=== PATIENT | male | born 1980 | race Caucasian/White ===

== ENCOUNTER 2024-04-17 22:26 | Inpatient (IN) ==
--- NOTE | 2024-04-17 22:38 | Emergency Department Note ---
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 He started having a seizure. This lasted for over 30 minutes. He was given a total of 9 of Versed per EMS who provided additional history. Seizure eventually broke. They placed him on nonrebreather. Patient is unable to provide any additional history as he is currently postictal and partially sedated. ADDITIONAL HISTORY OBTAINED: Per HPI Chronic Medical/Social Conditions Affecting Care: Per HPI PAST MEDICAL HISTORY:See Below PAST SURGICAL HISTORY:See Below FAMILY HISTORY:See Below SOCIAL HISTORY:See Below HOME MEDICATIONS:See Below ALLERGIES:See Below VITALS:See Below PHYSICAL EXAMINATION: GENERAL: Laying on [place], cervical collar in place, nonrebreather in place HEAD: NC/AT EYE EXAM: normal conjunctiva. PERRL and EOM's grossly intact. OROPHARYNX: no exudate, no erythema, lips, buccal mucosa, and tongue normal and mucous membranes are moist NECK: supple, no nuchal rigidity, no adenopathy, non-tender LUNGS: Clear to auscultation. Normal chest wall mechanics HEART: no murmurs, S1 normal and S2 normal ABDOMEN: abdomen soft, non-tender, normo-active bowel sounds, no masses, no rebound or guarding. BACK: Back is symmetrical on inspection and there is no deformity, no midline tenderness, no CVA tenderness. UPPER EXTREMITIES: upper extremities are grossly normal. LOWER EXTREMITIES: No pitting edema. NEURO EXAM: Awake but not following commands moaning moving all extremities MEDICAL DECISION MAKING: Patient is a 43-year-old male who presents ER for the above-stated complaint. IV was established and blood work was obtained. Labs show no significant leukocytosis. Mild anemia at 13.2. VBG with a pH of 7.3. BMP along with LFTs bilirubin was unremarkable. Troponin was negative. Lipase mildly elevated to 63. Patient was given 1.75 g of Keppra. His mentation gradually improved while in the ER. CT head and cervical spine was negative. Pacemaker was interrogated and showed 8 months left of battery and no arrhythmias in the past 3 days. With his 30 to 40-minute episode of seizure did discuss with the hospitalist for further observation overnight. Again on repeat exam he was awake alert oriented to person place or time and following commands. No focal deficit. Consults/Care Managements Discussions: Per MDM Triage Nursing notes reviewed. Limited review of prior medical records performed Vital Signs: reviewed and remarkable for no significant abnormalities Differential diagnosis: Differential diagnosis includes etiologies such as infection, hypoglycemia, electrolyte abnormalities, cardiac sources, intracerebral event, trauma, toxicologic, neurologic, as well as others were entertained. ER treatment provided: See below Diagnostics interpreted by me include EKG and cardiac monitoring as listed below: -Cardiac Monitoring: An order was placed for continuous cardiac monitoring. The monitor shows a rate of 70 with sinus rhythm. -ECG: Sinus rhythm rate 89 Normal axis No PVCs QTc 442 -Laboratory studies:Interpreted by me as stated above in MDM and shown below. Imaging studies: Xrays: As interpreted by me: Chest x-ray shows bilateral interstitial infiltrates CTs show: CT head and cervical spine was negative per radiology Procedures:none Critical Care: None Past Med/Surg History Problem List (Updated 04/18/24 @ 00:12 by Memo Bennett DO) Anemia (Acute) High serum chloride (Acute) Status epilepticus (Acute) S/P placement of cardiac pacemaker Seizure disorder Presence of cardiac pacemaker B12 deficiency Lyme disease, unspecified Vitamin D deficiency, unspecified Complex partial epilepsy Insomnia, unspecified Elevation of levels of liver transaminase levels Hand pain, right Verruca vulgaris Lipoma of back Lipoma of forearm Displaced fracture of cuboid bone of left foot Nondisplaced fracture of navicular [scaphoid] of left foot, initial encounter for closed fracture Surgical History (Updated 06/22/23 @ 10:22 by Leigha Cardoso) Lymphoma History of mandibular surgery Family History Other Cancer Crohn's disease Seizures Ulcerative colitis Social History Smoking Status: Unknown if ever smoked Hx Alcohol Use: No Hx Substance Use: No Feels Safe at Home: Yes Allergies Allergies Allergy/AdvReac Type Severity Reaction Status Date / Time No Known Allergies Allergy Verified 12/23/23 11:28 Home Meds Home Medications Medication Instructions Recorded Confirmed cholecalciferol (vitamin D3) 50 50 mcg PO DAILY 06/14/23 12/23/23 mcg (2,000 unit) capsule magnesium 250 mg tablet 250 mg PO DAILY 06/14/23 12/23/23 medical marijuana inhalation 06/14/23 12/23/23 multivitamin 1 tab PO DAILY 06/14/23 12/23/23 omega 3-ppb-gyr-fish oil 1,000 mg 1 cap PO DAILY 06/14/23 12/23/23 (120 mg-180 mg) capsule (Fish Oil) Previous Rx's Medication Instructions Recorded levetiracetam 1,000 mg tablet 1,000 mg PO BID 90 days #180 tabs 06/22/23 Results & Data (ED) Vital Signs Vital Signs - 24 hr 04/17/24 22:30 04/17/24 22:33 04/17/24 22:34 Temperature 37.1 C Temperature Source Oral Pulse Rate 76 Pulse Rate [Apical] Pulse Rate from SpO2 Sensor Pulse Rhythm Regular Pulse Rhythm [Apical] Pulse Strength Normal Pulse Strength [Apical] Respiratory Rate 18 Respiratory Effort / Characteristics Non-Labored Spontaneous Respiratory Depth Normal Respiratory Pattern Regular Blood Pressure 114/71 Blood Pressure [Right Arm] Blood Pressure Mean 85 Blood Pressure Mean [Right Arm] Blood Pressure Position Lying Pulse Oximetry 95 95 Oxygen Delivery Method Room Air Room Air Room Air Sepsis Recent Fever Within 48 Hours No Sepsis New/Unexplained Change in Mental Status No Sepsis Action Taken by Nursing No Action Required 04/17/24 22:35 04/17/24 22:50 04/17/24 22:55 Temperature Temperature Source Pulse Rate 76 87 72 Pulse Rate [Apical] Pulse Rate from SpO2 Sensor 88 Pulse Rhythm Pulse Rhythm [Apical] Pulse Strength Pulse Strength [Apical] Respiratory Rate 19 18 Respiratory Effort / Characteristics Respiratory Depth Respiratory Pattern Blood Pressure 130/74 115/61 Blood Pressure [Right Arm] Blood Pressure Mean 89 75 Blood Pressure Mean [Right Arm] Blood Pressure Position Pulse Oximetry 97 99 Oxygen Delivery Method Room Air Room Air Sepsis Recent Fever Within 48 Hours Sepsis New/Unexplained Change in Mental Status Sepsis Action Taken by Nursing 04/17/24 23:12 Temperature Temperature Source Pulse Rate Pulse Rate [Apical] 69 Pulse Rate from SpO2 Sensor Pulse Rhythm Pulse Rhythm [Apical] Regular Pulse Strength Pulse Strength [Apical] Normal Respiratory Rate 18 Respiratory Effort / Characteristics Non-Labored Spontaneous Respiratory Depth Normal Respiratory Pattern Regular Blood Pressure Blood Pressure [Right Arm] 114/67 Blood Pressure Mean Blood Pressure Mean [Right Arm] 82 Blood Pressure Position Pulse Oximetry 98 Oxygen Delivery Method Room Air Sepsis Recent Fever Within 48 Hours Sepsis New/Unexplained Change in Mental Status Sepsis Action Taken by Nursing Laboratory Data 04/17/24 22:35 04/17/24 22:35 Lab Results 04/17/24 04/17/24 04/17/24 Range/Units 22:35 22:40 23:00 WBC 6.69 (4.8-10.8) K/ul RBC 4.09 L (4.70-6.10) M/uL Hgb 13.2 L (14.0-18.0) g/dl POC Hgb 13.3 L (14.0-18.0) g/dl Hct 39.6 L (42.0-52.0) % POC Hct 39 L (42-52) % MCV 96.8 (80.0-100.0) fL MCH 32.3 (25.0-34.0) pg MCHC 33.3 (32.0-36.0) g/dL RDW Std Deviation 42.6 (36.4-46.3) fL RDW Coeff of Darya 11.9 (11.5-14.5) % Plt Count 266 (130-400) K/uL MPV 9.5 (9.4-12.4) fL Immature Gran % (Auto) 0.3 % Neut % (Auto) 66.2 % Lymph % (Auto) 24.4 % [place] % (Auto) 6.6 % Eos % (Auto) 1.8 % Baso % (Auto) 0.7 % Neut # (Auto) 4.43 (1.40-6.50) K/uL Lymph # (Auto) 1.63 (1.20-3.40) K/uL [place] # (Auto) 0.44 (0.11-0.59) K/uL Eos # (Auto) 0.12 (0.00-0.50) K/uL Baso # (Auto) 0.05 (0.00-0.20) K/uL Immature Gran # (Auto) 0.02 (0.01-0.20) K/uL VBG pH 7.33 L (7.36-7.41) VBG pCO2 52 H (38-50) mmHg VBG pO2 35 mmHg VBG HCO3 27 mmol/L VBG O2 Saturation < 60.0 % VBG Base Excess 0.6 mEq/L POC Sodium 144 (135-144) mmol/L Sodium 143 (136-145) mmol/L POC Potassium 4.0 (3.3-5.0) mmol/L Potassium 4.1 (3.5-5.1) mmol/L POC Chloride 107 (101-112) mmol/L Chloride 110 H (98-107) mmol/L Carbon Dioxide 26 (21-32) mmol/L POC Total CO2 22 L (24-31) mmol/L Anion Gap 7 (3-11) POC Anion Gap 21.0 (16-25) mmol/L POC BUN 10 (7-18) mg/dl BUN 12 (6-23) mg/dl Creatinine 1.07 (0.6-1.4) mg/dl POC Creatinine 1.1 (0.6-1.3) mg/dl Est Cr Clr Drug Dosing 91.1 ml/min eGFR 87.76 BUN/Creatinine Ratio 11.2 (10-20) Glucose 97 (70-99(Fasting)) mg/dl POC Glucose (other) 90 (70-99) mg/dl Calcium 9.2 (8.6-10.3) mg/dl POC Ioniz Calcium Rosaura 1.18 (1.12-1.32) mmol/l Total Bilirubin 0.3 (0.2-1.0) mg/dl AST 19 (13-39) U/L ALT 14 (7-52) U/L Alkaline Phosphatase 54 (34-104) U/L Troponin I High Sens 2.7 (0-20) pg/ml Total Protein 6.4 (6.0-8.3) gm/dl Albumin 4.2 (3.4-5.0) gm/dl Globulin 2.2 L (2.5-4.0) gm/dl Albumin/Globulin Ratio 1.9 (0.9-2) Lipase 263 H (11-82) U/L Administered Medications Discontinued Medications Levetiracetam (Levetiracetam 500 Mg/5 Ml Vial) 1,750 mg 20 mg/kg (1750 mg) IV NOW STA Stop: 04/17/24 23:18 Last Admin: 04/17/24 23:33 Dose: 1,750 mg Documented By: [facility] Imaging Data Radiologist's Impression: Cervical Spine CT 04/17/24 22:33 Exam(s): CT C SPINE EXAM: CT Cervical Spine Without Intravenous Contrast CLINICAL HISTORY: Reason for exam: fall head trauma. TECHNIQUE: Axial computed tomography images of the cervical spine without intravenous contrast. CTDI is 37.87 mGy and DLP is 1096.61 mGy-cm. Automated exposure control was utilized for the study. A dose lowering technique was utilized adhering to the principles of ALARA. COMPARISON: No relevant prior studies available. FINDINGS: Vertebrae: Unremarkable. No acute fracture. Discs/spinal canal/neural foramina: No acute findings. No spinal canal stenosis. Soft tissues: Unremarkable. IMPRESSION: Normal cervical spine CT. Electronically signed by: Memo De La Torre MD 04/17/24 23:[address] 04/17/24 22:33 Exam(s): CT HEAD Without Contrast EXAM: CT Head Without Intravenous Contrast CLINICAL HISTORY: Reason for exam: seizure. TECHNIQUE: Axial computed tomography images of the head/brain without intravenous contrast. CTDI is 37.87 mGy and DLP is 1096.91 mGy-cm. Automated exposure control was utilized for the study. A dose lowering technique was utilized adhering to the principles of ALARA. COMPARISON: No relevant prior studies available. FINDINGS: Brain: Unremarkable. No hemorrhage. No significant white matter disease. No edema. Ventricles: Unremarkable. No ventriculomegaly. Bones/joints: Unremarkable. No acute fracture. Soft tissues: Unremarkable. Sinuses: Unremarkable as visualized. No acute sinusitis. Mastoid air cells: Unremarkable as visualized. No mastoid effusion. IMPRESSION: Head CT negative for acute intracranial abnormality. Electronically signed by: Memo De La Torre MD 04/17/24 23:00 PM Chest X-Ray 04/17/24 22:34 Exam(s): XR CXR 1 VIEW EXAM: XR Chest, 1 View CLINICAL HISTORY: Reason for exam: Chest pain, nonspecific. TECHNIQUE: Frontal view of the chest. COMPARISON: No relevant prior studies available. FINDINGS: Lungs: Diffuse interstitial infiltrates likely infectious or inflammatory etiology. Pleural space: Unremarkable. No pneumothorax. Heart: Heart size within normal limits. Mediastinum: Unremarkable. Normal mediastinal contour. Bones/joints: Unremarkable. No acute fracture. No effusions. Tubes, lines and devices: Left chest wall intracardiac device. IMPRESSION: Diffuse interstitial infiltrates likely infectious or inflammatory etiology. Electronically signed by: Memo De La Torre MD 04/17/24 23:09 PM Discharge Plan Visit Data Chief Complaint: Seizure Stated Complaint: SEIZURE ED Provider: Memo Bennett Discharge Problem: Status epilepticus, High serum chloride, Anemia Forms Stand Alone Forms: My [facility] [employer] Prescriptions Prescriptions: No Action multivitamin Tablet 1 tab PO DAILY cholecalciferol (vitamin D3) 50 mcg (2,000 unit) capsule 50 mcg PO DAILY omega 9-vbi-otb-fish oil [Fish Oil] 1,000 mg (120 mg-180 mg) capsule 1 cap PO DAILY medical marijuana inhalation magnesium 250 mg tablet 250 mg PO DAILY levetiracetam 1,000 mg tablet 1,000 mg PO BID 90 Days Qty: 180 3RF Referrals Referrals: Sindy Del Cid CRNP [Outside Practitioners] -
[2024-04-17 22:51] LABS: Basophils # (auto) 0.05 K/uL (0.00-0.20); Basophils % (auto) 0.7 %; Eosinophils # (auto) 0.12 K/uL (0.00-0.50); Eosinophils % (auto) 1.8 %; Hematocrit (blood only) 39.6 % (42.0-52.0); Hemoglobin 13.2 g/dl (14.0-18.0); Immature Granulocytes # (auto) 0.02 K/uL (0.01-0.20); Immature Granulocytes % (auto) 0.3 %; Lymphocytes # (auto) 1.63 K/uL (1.20-3.40); Lymphocytes % (auto) 24.4 %; Mean Corpuscular Hemoglobin 32.3 pg (25.0-34.0); Mean Corpuscular Hgb Conc 33.3 g/dL (32.0-36.0); Mean Corpuscular Volume 96.8 fL (80.0-100.0); Mean Platelet Volume 9.5 fL (9.4-12.4); Monocytes # (auto) 0.44 K/uL (0.11-0.59); Monocytes % (auto) 6.6 %; Neutrophils # (auto) 4.43 K/uL (1.40-6.50); Neutrophils % (auto) 66.2 %; Platelet Count 266 K/uL (130-400); RDW Coefficient of Variation 11.9 % (11.5-14.5); RDW Standard Deviation 42.6 fL (36.4-46.3); Red Blood Count 4.09 M/uL (4.70-6.10); White Blood Count 6.69 K/ul (4.8-10.8)
[2024-04-17 22:52] LABS: iSTAT Creatinine 1.1 mg/dl (0.6-1.3); iSTAT Hemoglobin 13.3 g/dl (14.0-18.0); iSTAT Ionized Calcium 1.18 mmol/l (1.12-1.32)
--- NOTE | 2024-04-17 23:01 | CT Scan Report ---
Exam(s): CT HEAD Without Contrast EXAM: CT Head Without Intravenous Contrast CLINICAL HISTORY: Reason for exam: seizure. TECHNIQUE: Axial computed tomography images of the head/brain without intravenous contrast. CTDI is 37.87 mGy and DLP is 1096.91 mGy-cm. Automated exposure control was utilized for the study. A dose lowering technique was utilized adhering to the principles of ALARA. COMPARISON: No relevant prior studies available. FINDINGS: Brain: Unremarkable. No hemorrhage. No significant white matter disease. No edema. Ventricles: Unremarkable. No ventriculomegaly. Bones/joints: Unremarkable. No acute fracture. Soft tissues: Unremarkable. Sinuses: Unremarkable as visualized. No acute sinusitis. Mastoid air cells: Unremarkable as visualized. No mastoid effusion. IMPRESSION: Head CT negative for acute intracranial abnormality. Electronically signed by: Memo De La Torre MD 04/17/24 23:00 PM
--- NOTE | 2024-04-17 23:05 | CT Scan Report ---
Exam(s): CT C SPINE EXAM: CT Cervical Spine Without Intravenous Contrast CLINICAL HISTORY: Reason for exam: fall head trauma. TECHNIQUE: Axial computed tomography images of the cervical spine without intravenous contrast. CTDI is 37.87 mGy and DLP is 1096.61 mGy-cm. Automated exposure control was utilized for the study. A dose lowering technique was utilized adhering to the principles of ALARA. COMPARISON: No relevant prior studies available. FINDINGS: Vertebrae: Unremarkable. No acute fracture. Discs/spinal canal/neural foramina: No acute findings. No spinal canal stenosis. Soft tissues: Unremarkable. IMPRESSION: Normal cervical spine CT. Electronically signed by: Memo De La Torre MD 04/17/24 23:05 PM
[2024-04-17 23:06] LABS: Albumin Globulin Ratio 1.9 (0.9-2); Albumin Level 4.2 gm/dl (3.4-5.0); BUN Creatinine Ratio 11.2 (10-20); Bilirubin,Total 0.3 mg/dl (0.2-1.0); Calcium 9.2 mg/dl (8.6-10.3); Creatinine Clr Calc Pharmacy 91.1 ml/min; Globulin 2.2 gm/dl (2.5-4.0); Potassium 4.1 mmol/L (3.5-5.1); Total Protein 6.4 gm/dl (6.0-8.3)
[2024-04-17 23:07] LABS: Base Excess VBG 0.6 mEq/L; HCO3 VBG 27 mmol/L; Oxygen Saturation VBG < 60.0 %; PCO2 VBG 52 mmHg (38-50); PO2 VBG 35 mmHg; pH VBG 7.33 (7.36-7.41)
--- NOTE | 2024-04-17 23:10 | XRay Report ---
Exam(s): XR CXR 1 VIEW EXAM: XR Chest, 1 View CLINICAL HISTORY: Reason for exam: Chest pain, nonspecific. TECHNIQUE: Frontal view of the chest. COMPARISON: No relevant prior studies available. FINDINGS: Lungs: Diffuse interstitial infiltrates likely infectious or inflammatory etiology. Pleural space: Unremarkable. No pneumothorax. Heart: Heart size within normal limits. Mediastinum: Unremarkable. Normal mediastinal contour. Bones/joints: Unremarkable. No acute fracture. No effusions. Tubes, lines and devices: Left chest wall intracardiac device. IMPRESSION: Diffuse interstitial infiltrates likely infectious or inflammatory etiology. Electronically signed by: Memo De La Torre MD 04/17/24 23:09 PM
[2024-04-17 23:14] LABS: Troponin I High Sensitivity 2.7 pg/ml (0-20)
[2024-04-17] MEDS: levETIRAcetam 500 MG/5 ML VIAL IV STA (23:33)
--- NOTE | 2024-04-18 00:32 | History & Physical Report ---
Date of Service April 18, 2024 Assessment & Plan (1) Status epilepticus: (2) Seizure disorder: (3) Presence of cardiac pacemaker: (4) Lyme disease, unspecified: Plan Status epilepticus/seizure disorder- Seizure duration and feel was noted to be over 30 minutes Patient received total of 9 mg of Versed by EMS in the field to break the seizure Patient has not had any recent illnesses He reports has been taking his Keppra as directed He received Keppra 1750 mg IV from the ED Since patient is more alert this time, will place him on his usual dosing of Keppra 1000 mg p.o. twice daily Admit to monitored bed with seizure precautions Order an EEG Patient is unable to get MRIs due to presence of a pacer Consult neurology Presence of AV pacer- Patient had history of Lyme disease, Lyme carditis and cardiac arrest History of Present Illness Chief Complaint: The patient presents to the emergency department with complaint of a seizure that lasted over 30 minutes today. He was seen by EMS, who gave a total of 9 mg of Versed to help control his seizure. He was placed on nonrebreather, and brought to the emergency, where he was initially postictal and partially sedated. 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 He presented to the emergency department after episode of status epilepticus, where seizure lasted for over 30 minutes, and ultimately the seizure broke after receiving 9 mg total of Versed from past. Patient was postictal for a few hours after the seizure, however, at the time of my assessment the patient is now oriented and no longer postictal. He denies any recent illnesses, travels or sick exposures. Allergies Allergy/AdvReac Type Severity Reaction Status Date / Time No Known Allergies Allergy Verified 12/23/23 11:28 Home Medications Medication Instructions Recorded Confirmed Type cholecalciferol (vitamin D3) 50 50 mcg PO DAILY 06/14/23 12/23/23 History mcg (2,000 unit) capsule magnesium 250 mg tablet 250 mg PO DAILY 06/14/23 12/23/23 History medical marijuana inhalation 06/14/23 12/23/23 History multivitamin 1 tab PO DAILY 06/14/23 12/23/23 History omega 6-vqo-ohv-fish oil 1,000 mg 1 cap PO DAILY 06/14/23 12/23/23 History (120 mg-180 mg) capsule (Fish Oil) levetiracetam 1,000 mg tablet 1,000 mg PO BID 90 days #180 tabs 06/22/23 12/23/23 Rx Past Med/Surg History Problem List (Updated 04/18/24 @ 00:12 by Memo Bennett DO) Anemia (Acute) High serum chloride (Acute) Status epilepticus (Acute) S/P placement of cardiac pacemaker Seizure disorder Presence of cardiac pacemaker B12 deficiency Lyme disease, unspecified Vitamin D deficiency, unspecified Complex partial epilepsy Insomnia, unspecified Elevation of levels of liver transaminase levels Hand pain, right Verruca vulgaris Lipoma of back Lipoma of forearm Displaced fracture of cuboid bone of left foot Nondisplaced fracture of navicular [scaphoid] of left foot, initial encounter for closed fracture Surgical History (Updated 06/22/23 @ 10:22 by Leigha Cardoso) Lymphoma History of mandibular surgery Family History Other Cancer Crohn's disease Seizures Ulcerative colitis Social History Smoking Status: Former smoker Tobacco Type: Cigarettes Second Hand Exposure: No; Hx Alcohol Use: No Hx Substance Use: No Preferred Language: Guatemalan Communication Ability: Effective 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 Beliefs That Will Affect Care: None Current Living Situation: Alone Current Living Situation Comment: Lives with grandmother Feels Safe at Home: Yes Assistive Devices: None Review of Systems 2 Review of Systems: The patient denies chest pain, palpitations, shortness of breath, dyspnea on exertion, cough, lower extremity swelling, sore throat, fevers, chills, sweats, weight change, fatigue, nausea, vomiting, diarrhea , constipation, abdominal pain, pelvic pain, blood in urine or stool, dysuria, urinary frequency or urgency, rash, abnormal bruising or bleeding, imbalance, focal or generalized weakness, numbness or tingling in arms or legs, generalized arthralgias or myalgias, back or neck pain, or night sweats. The review of systems is otherwise negative other than for that already noted above, and at least 10 systems have been reviewed. Physical Exam Physical Exam: The patient is awake, alert and oriented 3, well developed and well nourished, normocephalic and atraumatic, lying in bed and in no acute distress. HEENT--PERRL, EOMI, mucous membranes and oropharynx dry. Neck--supple. No JVD. No bruits. Thyroid normal, trachea midline, no adenopathy. Heart--normal S1 and S2. No murmurs, rubs or gallops. Lungs--clear bilaterally, no respiratory distress, no accessory muscle use. Abdomen--normal bowel sounds and soft. Nontender. Nondistended, no hernias or masses, no organomegaly. Extremities--no cyanosis or clubbing. No edema. There are good distal pulses b/l. Dermatologic--normal skin turgor, normal color, no abnormal lymph nodes, no rash. Neurologic--cranial nerves II through XII grossly intact. Rheumatologic--normal range of motion. Psychiatric--normal affect. Results & Data Results & Data Vital Signs (Past 12 Hours) Vital Signs Temp Pulse Pulse Resp BP BP Pulse Ox 04/17/24 23:12 69 18 114/67 98 04/17/24 22:55 72 18 115/61 99 04/17/24 22:50 87 19 130/74 97 04/17/24 22:35 76 04/17/24 22:34 95 04/17/24 22:33 04/17/24 22:30 37.1 C 76 18 114/71 95 O2 Del Method 04/17/24 23:12 Room Air 04/17/24 22:55 Room Air 04/17/24 22:50 Room Air 04/17/24 22:35 04/17/24 22:34 Room Air 04/17/24 22:33 Room Air 04/17/24 22:30 Room Air Laboratory Results Laboratory Results WBC 6.69 K/ul (4.8-10.8) 04/17/24 22:35 RBC 4.09 M/uL (4.70-6.10) L 04/17/24 22:35 Hgb 13.2 g/dl (14.0-18.0) L 04/17/24 22:35 POC Hgb 13.3 g/dl (14.0-18.0) L 04/17/24 22:40 Hct 39.6 % (42.0-52.0) L 04/17/24 22:35 POC Hct 39 % (42-52) L 04/17/24 22:40 MCV 96.8 fL (80.0-100.0) 04/17/24 22:35 MCH 32.3 pg (25.0-34.0) 04/17/24 22: MCHC 33.3 g/dL (32.0-36.0) 04/17/24 22:35 RDW Std Deviation 42.6 fL (36.4-46.3) 04/17/24 22: RDW Coeff of Darya 11.9 % (11.5-14.5) 04/17/24: Plt Count 266 K/uL (130-400) 04/17/24 22:35 MPV 9.5 fL (9.4-12.4) 04/17/24 22:35 Immature Gran % (Auto) 0.3 % 04/17/24 22:35 Neut % (Auto) 66.2 % 04/17/24 22:35 Lymph % (Auto) 24.4 % 04/17/24 22:35 [place] % (Auto) 6.6 % 04/17/24 22:35 Eos % (Auto) 1.8 % 04/17/24 22:35 Baso % (Auto) 0.7 % 04/17/24 22:35 Neut # (Auto) 4.43 K/uL (1.40-6.50) 04/17/24 22:35 Lymph # (Auto) 1.63 K/uL (1.20-3.40) 04/17/24 22:35 [place] # (Auto) 0.44 K/uL (0.11-0.59) 04/17/24 22:35 Eos # (Auto) 0.12 K/uL (0.00-0.50) 04/17/24 22: Baso # (Auto) 0.05 K/uL (0.00-0.20) 04/17/24 22:35 Immature Gran # (Auto) 0.02 K/uL (0.01-0.20) 04/17/24 22:35 VBG pH 7.33 (7.36-7.41) L 04/17/24 23:00 VBG pCO2 52 mmHg (38-50) H 04/17/24 23:00 VBG pO2 35 mmHg 04/17/24 23:00 VBG HCO3 27 mmol/L 04/17/24 23:00 VBG O2 Saturation < 60.0 % 04/17/24 23:00 VBG Base Excess 0.6 mEq/L 04/17/24 23:00 POC Sodium 144 mmol/L (135-144) 04/17/24 22:40 Sodium 143 mmol/L (136-145) 04/17/24 22:35 POC Potassium 4.0 mmol/L (3.3-5.0) 04/17/24 22:40 Potassium 4.1 mmol/L (3.5-5.1) 04/17/24 22:35 POC Chloride 107 mmol/L (101-112) 04/17/24 22:40 Chloride 110 mmol/L (98-107) H 04/17/24 22:35 Carbon Dioxide 26 mmol/L (21-32) 04/17/24 22:35 POC Total CO2 22 mmol/L (24-31) L 04/17/24 22:40 Anion Gap 7 (3-11) 04/17/24 22:35 POC Anion Gap 21.0 mmol/L (16-25) 04/17/24 22:40 POC BUN 10 mg/dl (7-18) 04/17/24 22:40 BUN 12 mg/dl (6-23) 04/17/24 22:35 Creatinine 1.07 mg/dl (0.6-1.4) 04/17/24 22:35 POC Creatinine 1.1 mg/dl (0.6-1.3) 04/17/24 22:40 Est Cr Clr Drug Dosing 91.1 ml/min 04/17/24 22:35 eGFR 87.76 04/17/24 22:35 BUN/Creatinine Ratio 11.2 (10-20) 04/17/24 22:35 Glucose 97 mg/dl (70-99(Fasting)) 04/17/24 22:35 POC Glucose (other) 90 mg/dl (70-99) 04/17/24 22:40 Calcium 9.2 mg/dl (8.6-10.3) 04/17/24 22:35 POC Ioniz Calcium Rosaura 1.18 mmol/l (1.12-1.32) 04/17/24 22:40 Total Bilirubin 0.3 mg/dl (0.2-1.0) 04/17/24 22:35 AST 19 U/L (13-39) 04/17/24 22:35 ALT 14 U/L (7-52) 04/17/24 22:35 Alkaline Phosphatase 54 U/L (34-104) 04/17/24 22:35 Troponin I High Sens 2.7 pg/ml (0-20) 04/17/24 22:35 Total Protein 6.4 gm/dl (6.0-8.3) 04/17/24 22:35 Albumin 4.2 gm/dl (3.4-5.0) 04/17/24 22:35 Globulin 2.2 gm/dl (2.5-4.0) L 04/17/24 22:35 Albumin/Globulin Ratio 1.9 (0.9-2) 04/17/24 22:35 Lipase 263 U/L (11-82) H 04/17/24 22:[address] 04/17/24 22:33 Exam(s): CT C SPINE EXAM: CT Cervical Spine Without Intravenous Contrast CLINICAL HISTORY: Reason for exam: fall head trauma. TECHNIQUE: Axial computed tomography images of the cervical spine without intravenous contrast. CTDI is 37.87 mGy and DLP is 1096.61 mGy-cm. Automated exposure control was utilized for the study. A dose lowering technique was utilized adhering to the principles of ALARA. COMPARISON: No relevant prior studies available. FINDINGS: Vertebrae: Unremarkable. No acute fracture. Discs/spinal canal/neural foramina: No acute findings. No spinal canal stenosis. Soft tissues: Unremarkable. IMPRESSION: Normal cervical spine CT. Electronically signed by: Memo De La Torre MD 04/17/24 23:[address] 04/17/24 22:33 Exam(s): CT HEAD Without Contrast EXAM: CT Head Without Intravenous Contrast CLINICAL HISTORY: Reason for exam: seizure. TECHNIQUE: Axial computed tomography images of the head/brain without intravenous contrast. CTDI is 37.87 mGy and DLP is 1096.91 mGy-cm. Automated exposure control was utilized for the study. A dose lowering technique was utilized adhering to the principles of ALARA. COMPARISON: No relevant prior studies available. FINDINGS: Brain: Unremarkable. No hemorrhage. No significant white matter disease. No edema. Ventricles: Unremarkable. No ventriculomegaly. Bones/joints: Unremarkable. No acute fracture. Soft tissues: Unremarkable. Sinuses: Unremarkable as visualized. No acute sinusitis. Mastoid air cells: Unremarkable as visualized. No mastoid effusion. IMPRESSION: Head CT negative for acute intracranial abnormality. Electronically signed by: Memo De La Torre MD 04/17/24 23:00 PM Chest X-Ray 04/17/24 22:34 Exam(s): XR CXR 1 VIEW EXAM: XR Chest, 1 View CLINICAL HISTORY: Reason for exam: Chest pain, nonspecific. TECHNIQUE: Frontal view of the chest. COMPARISON: No relevant prior studies available. FINDINGS: Lungs: Diffuse interstitial infiltrates likely infectious or inflammatory etiology. Pleural space: Unremarkable. No pneumothorax. Heart: Heart size within normal limits. Mediastinum: Unremarkable. Normal mediastinal contour. Bones/joints: Unremarkable. No acute fracture. No effusions. Tubes, lines and devices: Left chest wall intracardiac device. IMPRESSION: Diffuse interstitial infiltrates likely infectious or inflammatory etiology. Electronically signed by: Memo De La Torre MD 04/17/24 23:09 PM Code Status & VTE Plan Code Status Full code VTE Prophylaxis Plan VTE Prophylaxis will be ordered: Yes PG Care Time/CCT Total # of Minutes Spent Total Time Spent with Patient: Total time spent is greater than 50% in coordination of care (as documented) at patient's floor/unit and/or counseling patient: Coding Level of Care Code 54811 INT INP/OBS CARE 2/55MIN Diagnoses Status epilepticus G40.901 Seizure disorder G40.909 Presence of cardiac pacemaker Z95.0 Lyme disease, unspecified A69.20
[2024-04-18 06:40] LABS: Basophils # (auto) 0.05 K/uL (0.00-0.20); Basophils % (auto) 0.4 %; Eosinophils # (auto) 0.04 K/uL (0.00-0.50); Eosinophils % (auto) 0.3 %; Hematocrit (blood only) 38.3 % (42.0-52.0); Hemoglobin 13.1 g/dl (14.0-18.0); Immature Granulocytes # (auto) 0.05 K/uL (0.01-0.20); Immature Granulocytes % (auto) 0.4 %; Lymphocytes # (auto) 2.04 K/uL (1.20-3.40); Lymphocytes % (auto) 16.6 %; Mean Corpuscular Hemoglobin 32.8 pg (25.0-34.0); Mean Corpuscular Hgb Conc 34.2 g/dL (32.0-36.0); Mean Platelet Volume 9.5 fL (9.4-12.4); Monocytes # (auto) 0.91 K/uL (0.11-0.59); Monocytes % (auto) 7.4 %; Neutrophils # (auto) 9.22 K/uL (1.40-6.50); Neutrophils % (auto) 74.9 %; Platelet Count 259 K/uL (130-400); RDW Coefficient of Variation 11.9 % (11.5-14.5); RDW Standard Deviation 41.8 fL (36.4-46.3); Red Blood Count 3.99 M/uL (4.70-6.10); White Blood Count 12.31 K/ul (4.8-10.8)
[2024-04-18 06:58] LABS: Albumin Globulin Ratio 1.6 (0.9-2); Albumin Level 3.9 gm/dl (3.4-5.0); BUN Creatinine Ratio 12.8 (10-20); Bilirubin,Total 0.6 mg/dl (0.2-1.0); Calcium 9.1 mg/dl (8.6-10.3); Creatinine Clr Calc Pharmacy 100.3 ml/min; Globulin 2.5 gm/dl (2.5-4.0); Potassium 4.3 mmol/L (3.5-5.1); Total Protein 6.4 gm/dl (6.0-8.3)
[2024-04-18 07:15] VITALS: TEMP 98.6
[2024-04-18] MEDS: OMEGA-3 (PURIFIED FISH OIL) 1 GM CAP PO SCH (09:02)
[2024-04-18] MEDS: levETIRAcetam 500 MG TAB PO SCH (09:02)
[2024-04-18] MEDS: MAGNESIUM OXIDE 400 MG TAB PO SCH (09:02)
[2024-04-18] MEDS: CHOLECALCIFEROL 25 MCG (1000 UNITS) TAB PO SCH (09:03)
[2024-04-18] MEDS: MULTIVITAMIN TAB PO SCH (09:03)
[2024-04-18] MEDS: ACETAMINOPHEN 325 MG TAB PO PRN (09:04)
--- NOTE | 2024-04-18 09:13 | Neurology Consultation ---
Date of Consultation April 18, 2024 Assessment & Plan (1) Seizure: (2) Seizure disorder: Plan 43-year-old male with a history of seizure disorder beginning in 2007. He has been seizure-free since October 2022. He has been compliant with Keppra 1000 mg twice daily. Last night's breakthrough seizure seems to have been unprovoked. At this point, I would recommend adding divalproex DR 500 mg twice daily as an adjunctive antiseizure medication. He should continue with Keppra 1000 mg twice daily. Going forward, I will consider transitioning from levetiracetam to divalproex monotherapy. An inpatient EEG is not necessary at this time. However, I will arrange for an outpatient ambulatory EEG. Patient may follow-up with me in clinic 2 to 3 weeks after discharge. History of Present Illness Reason for Consultation: Seizure Requesting Physician: Yaw Attending Physician: Mulugeta Aviles, DO History of Present Illness The patient is a 43-year-old male who is known to me. I initially evaluated him in neurology clinic in May 2023 for ongoing management of seizure disorder. He began experiencing seizures in 2007, episodes characterized by feeling of fatigue, strange feeling in the head, followed by collapse, loss of consciousn ess, generalized shaking of the limbs. At that point in time, his last seizure had occurred in October 2022. His dosage of Keppra had been increased at that time and he had been compliant with his medication. He has had several normal EEGs previously. History notable for Lyme disease complicated by carditis, cardiac arrest, post pacemaker implantation. His pacer is not MRI compatible. I saw him for a follow-up visit December 23, 2023, he had been doing well with Keppra, no changes were made in his treatment regimen at that time. A Keppra level was drawn on December 25, 2023, level 20.2. He presented to the [facility] emergency department last night after a seizure episode that occurred at work. He works at a [employer] plant, second shift, had been feeling well throughout the day, at around 9 PM he recalls feeling a little dizzy, strange feeling. He apparently collapsed and had a generalized tonic-clonic seizure lasting over 30 minutes. Resolved with Versed per EMS. He bit the tip of his tongue, no other injuries. Currently complains of a low-grade headache and is otherwise amnestic for the event. A CT of the head and cervical spine are negative for acute process. I did independently review these images. There is no hydrocephalus, no hemorrhage, no mass effect. There is a mild leukocytosis this morning, sodium, potassium, BUN and creatinine normal. Calcium and magnesium normal, normal transaminases. His electrocardiogram reveals a normal sinus rhythm with sinus arrhythmia. He has been afebrile and normotensive. Allergies Allergy/AdvReac Type Severity Reaction Status Date / Time No Known Allergies Allergy Verified 12/23/23 11:28 Home Medications Medication Instructions Recorded Confirmed Type cholecalciferol (vitamin D3) 50 50 mcg PO DAILY 06/14/23 12/23/23 History mcg (2,000 unit) capsule magnesium 250 mg tablet 250 mg PO DAILY 06/14/23 12/23/23 History medical marijuana inhalation 06/14/23 12/23/23 History multivitamin 1 tab PO DAILY 06/14/23 12/23/23 History omega 3-vdg-zdj-fish oil 1,000 mg 1 cap PO DAILY 06/14/23 12/23/23 History (120 mg-180 mg) capsule (Fish Oil) levetiracetam 1,000 mg tablet 1,000 mg PO BID 90 days #180 tabs 06/22/23 12/23/23 Rx Patient History Surgical History (Updated 06/22/23 @ 10:22 by Leigha Cardoso) Lymphoma History of mandibular surgery Family History Other Cancer Crohn's disease Seizures Ulcerative colitis Social History Smoking Status: Former smoker Tobacco Type: Cigarettes Smoking End Date: quit 5 years ago; Second Hand Exposure: No; Tobacco Cessation Education Requested by Patient: No Hx Alcohol Use: No Hx Substance Use: No Preferred Language: [place] Verdean Communication Ability: Effective Toeing Stockings Required: No Beliefs That Will Affect Care: None Current Living Situation: Alone Current Living Situation Comment: Lives with grandmother Other Information That Helps Us Care for You: No Feels Safe at Home: Yes Safety Concerns: Feels Safe At This Time Assistive Devices: None Review of Systems Constitutional: no fever and no chills Eyes: no blind spots and no diplopia Ear, Nose, Mouth, Throat: no hearing loss Respiratory: no cough and no dyspnea Cardiovascular: no chest pain and no palpitations Gastrointestinal: no nausea and no vomiting Genitourinary: no dysuria Musculoskeletal: no myalgia and no muscle weakness Integumentary: no rash and no lesions Neurologic: as per Subjective / HPI and + headache(s); no localized weakness, no loss of sensation, no lack of coordination, no tremor(s) and no abnormal movements Psychiatric: no depression and no anxiety Hematologic / Lymphatic: no easy bleeding and no easy bruising Exam (Neuro) Constitutional: well developed and well nourished; no acute distress Eyes: normal visual snider by confrontation, PERRL, normal accommodation and EOM intact bilaterally; no nystagmus Neurologic: Oriented to:: Person, Place and Time Memory: Short Term Intact and Remote Intact Attention: Span Intact and Concentration Intact Language: Naming Objects and Repeating Phrases Speech Fluency: negative Dysarthria Speech Aphasia: negative Aphasia Fund of Knowledge: Current Events, Past History and Vocabulary Cranial Nerves: Normal II (Visual snider full to confrontation, visual acuity normal), III, IV, (Pupils equal round reactive to light and accommodation, eye movements normal), V (Facial sensation intact), VII (There is no facial droop or weakness), VIII (Hearing intact), IX, X (Palate elevates to midline), XI (Shoulder shrug intact) and XII (Tongue protrudes to midline) Motor Strength: Normal Lower Extremities and Normal Upper Extremities; negative Pronator Drift Motor Tone: Normal Lower Extremities and Normal Upper Extremities Muscle Bulk/Involuntary Movements: No Involuntary Movements; negative Muscle Atrophy Sensation: Light Touch Intact, Pain/Temperature Intact, Vibration Intact and Proprioception Intact Coordination: Normal; negative Limited Balance, Dysdiadochokinesia, Finger-Nose Abnormal or Heel-Velázquez Abnormal Deep Tendon Reflexes: Rt Triceps: 2+, Lt Triceps: 2+, Rt Biceps: 2+, Lt Biceps: 2+, Rt Brachioradialis: 2+, Lt Brachioradialis: 2+, Rt Patellar: 2+, Lt Patellar: 2+, Rt Ankle: 2+ and Lt Ankle: 2+ Special Tests: negative Babinski Present Results & Data Vital Signs (Past 12 Hours) Vital Signs Temp Pulse Pulse Resp BP BP Pulse Ox 04/18/24 07:13 37.0 C 71 20 110/65 96 04/18/24 02:02 69 04/18/24 01:53 36.8 C 86 16 134/68 98 04/18/24 01:52 04/18/24 01:26 36.8 C 64 19 139/85 98 04/17/24 23:12 69 18 114/67 98 04/17/24 22:55 72 18 115/61 99 04/17/24 22:50 87 19 130/74 97 04/17/24 22:35 76 04/17/24 22:34 95 04/17/24 22:33 04/17/24 22:30 37.1 C 76 18 114/71 95 Pulse Ox O2 Del Method O2 Del Method 04/18/24 07:13 Room Air 04/18/24 02:02 04/18/24 01:53 Room Air 04/18/24 01:52 98 Room Air 04/18/24 01:26 Room Air 04/17/24 23:12 Room Air 04/17/24 22:55 Room Air 04/17/24 22:50 Room Air 04/17/24 22:35 04/17/24 22:34 Room Air 04/17/24 22:33 Room Air 04/17/24 22:30 Room Air Laboratory Results WBC 12.31, hemoglobin 13.1, hematocrit 38.3, MCV 96.0, platelet count 259, sodium 142, potassium 4.3 BUN 12, creatinine 0.94, glucose 108, calcium 9.1, magnesium 2.0, AST 24, ALT [address] of the head and cervical spine are as described in the HPI, ECG as described in the HPI Coding Level of Care Code 66113 INT INP/OBS CARE 3/75MIN Diagnoses Seizure R56.9 Seizure disorder G40.909 Time Spent (min) 80 Comment Total time includes patient contact, chart review, counseling, note preparation
[2024-04-18] MEDS: DIVALPROEX DELAY RELEASE 500 MG TAB PO SCH (10:45)
[2024-04-18 11:20] VITALS: BP 120/68; PULSE 73; RESP 18; O2SAT 97
--- NOTE | 2024-04-18 15:45 | Discharge Summary ---
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 He presented to the emergency department after episode of status epilepticus, where seizure lasted for over 30 minutes, and ultimately the seizure broke after receiving 9 mg total of Versed from past. Patient was postictal for a few hours after the seizure, however, at the time of my assessment the patient is now oriented and no longer postictal. He denies any recent illnesses, travels or sick exposures. Admission Exam Per Admitting Provider The patient is awake, alert and oriented 3, well developed and well nourished, normocephalic and atraumatic, lying in bed and in no acute distress. HEENT--PERRL, EOMI, mucous membranes and oropharynx dry. Neck--supple. No JVD. No bruits. Thyroid normal, trachea midline, no adenopathy. Heart--normal S1 and S2. No murmurs, rubs or gallops. Lungs--clear bilaterally, no respiratory distress, no accessory muscle use. Abdomen--normal bowel sounds and soft. Nontender. Nondistended, no hernias or masses, no organomegaly. Extremities--no cyanosis or clubbing. No edema. There are good distal pulses b/l. Dermatologic--normal skin turgor, normal color, no abnormal lymph nodes, no rash. Neurologic--cranial nerves II through XII grossly intact. Rheumatologic--normal range of motion. Psychiatric--normal affect. Principal Diagnosis tonic-clonic seizure, breakthrough Discharge Exam Constitutional: A&Ox3, appears stated age, in no acute distress HEENT: NC/AT, anicteric sclerae, EOM intact, bite injury to tip of tongue not actively bleeding Cardiovascular: RRR, +s1/s2, no m/r/g Respiratory: clear to auscultation b/l, good equal air entry b/l, no wheeze/rales/rhonchi GI: abdomen soft, +BS, nontender to palpation Neuro: no facial droop, speech intact, no sensation deficits MSK: 5/5 strength in all extremities Discharge Data Allergies Allergy/AdvReac Type Severity Reaction Status Date / Time No Known Allergies Allergy Verified 12/23/23 11:28 Consultations 04/17/24 23:18 ED Decision to Admit Stat 04/18/24 01:52 Consult Neurology Routine Ordered Studies 04/17/24 22:33 CT cervical spine wo con Stat CT head/brain wo con Stat Hospital Course (1) Seizure: History of seizure disorder since 2007, denies any seizures since October 2022 until seemingly unprovoked breakthrough episode prompting current hospital stay - compliant with Keppra 1000 mg twice daily, continue taking upon discharge Neurology recommendations by Dr. Larson: - add divalproex DR 500 mg twice daily as an adjunctive antiseizure medication in addition to current keppra 1000mg BID - suggests eventual transition to divalproex monotherapy - will arrange for an outpatient ambulatory EEG - Patient may follow up with Dr. Larson in clinic 2-3 weeks after discharge. 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 Larson.) PCP,NO [Primary Care Provider] - Diet: Regular Addtl Attending Provider Instructions: You were treated for an unprovoked seizure that lasted about 30min last night after feeling dizzy and strange. You were given Versed (midazolam, a benzodiazepine) by EMS, which broke the seizure. You were placed on a nonrebreather mask for oxygen supplementation post-seizure and evaluated at [facility]. You sustained no injuries aside from a bite to the tip of your tongue. CT of head and C-spine (neck) were negative for any acute processes. Electrolytes and kidney enzymes appear normal and stable. Electrocardiogram shows a normal rhythm with normal fluctuation of rate with respirations. Your neurologist Dr. Larson is recommending adding divalproex DR 500 mg twice daily as an adjunctive antiseizure medication, and that you should continue taking Keppra 1000 mg twice daily. Going forward, he will consider transitioning you from levetiracetam to divalproex monotherapy. Additionally he will arrange for an outpatient ambulatory EEG. Dr. Larson is happy to see you for follow-up in clinic 2 to 3 weeks after discharge. Pending Studies at Discharge: No Stand-Alone Forms: [facility], Smoking Cessation Medications and DC Order Prescriptions: New divalproex 500 mg tablet,delayed release (DR/EC) 500 mg PO BID 21 Days Qty: 42 0RF Continued multivitamin Tablet 1 tab PO DAILY cholecalciferol (vitamin D3) 50 mcg (2,000 unit) capsule 50 mcg PO DAILY omega 4-[id number]-ova-fish oil [Fish Oil] 1,000 mg (120 mg-180 mg) capsule 1 cap PO DAILY medical marijuana inhalation magnesium 250 mg tablet 250 mg PO DAILY levetiracetam 1,000 mg tablet 1,000 mg PO BID 90 Days Qty: 180 3RF Discharge Orders: Discharge Order (Routine); Ordered 04/18/24 Ordered By: Bernardo Wheeler/Other Patient Handouts: Treating Epilepsy: Medicines, Self-Care for Seizures, Safety During a Seizure, Understanding Benzodiazepines Admission Data Admit Date/Time: 04/18/24 00:31 Attending Provider: Mulugeta Aviles Admit Provider: Willam Tidwell Primary Care Provider: PCP,NO Other Providers: Willam Tidwell; Flakito Larson Other Interventions: Discharge Summary Assessment (RN) Last Done: 04/18/24 13:01 Resident Activity Tracking Resident Involvement: Resident Care Provided Care Provided: Adult Hospital Medicine
--- NOTE | 2024-04-18 18:21 | Electrocardiogram Report ---
Test Reason : Blood Pressure : */* mmHG Vent. Rate : 89 BPM Atrial Rate : 89 BPM P-R Int : 146 ms QRS Dur : 82 ms QT Int : 364 ms P-R-T Axes : 48 73 63 degrees QTcB Int : 442 ms Normal sinus rhythm with sinus arrhythmia Normal ECG No previous ECGs available Confirmed by Scot Landin ([id number]) on 04/18/2024 6:20:51 PM Referred By: REFERRED SELF Confirmed By: Scot Landin
== END 2024-04-18 13:31 | disposition home or self-care (01) | DRG 101 ==
LOC: ED 22:26 → 2E 04-18 00:31 → SUATTDRO 04-18 00:31 → 2E 04-18 01:26